=== PATIENT | male | born 1945 | race Caucasian/White ===

== ENCOUNTER 2017-06-12 12:44 | Emergency (ER) | payer OTHER ==
[~2017-06-12] VITALS: Ht 181.6 cm; Wt 101.0 kg
[~2017-06-12 12:44] MED LIST: HYDR25TA4 PO; LOSA1TAB PO; PRAV20TA PO; PRLSR20 PO
[2017-06-12 12:46] VITALS: Ht 181.6 cm; Wt 101.0 kg
[2017-06-12] MEDS ORDERED: HYDROCODONE/ACETAMIN 5/325MG TAB PO ONE (13:00)
[2017-06-12] MEDS ORDERED: CHOL20009 PO (13:28)
[2017-06-12] MEDS ORDERED: ROSU5TAB PO (13:28)
--- NOTE | 2017-06-12 13:34 | DIAGNOSTIC IMAGING REPORT ---
LEFT FOOT 3 VIEWS CLINICAL HISTORY: Fall with left foot injury. FINDINGS: 3 views of the left foot are obtained. No prior studies are available for comparison at the time of dictation. The skeletal structures are osteopenic. A nondistracted fracture is suggested involving the distal shaft of the first proximal phalanx. No additional fracture is identified. Mild to moderate arthritic change is present at the first metatarsophalangeal joint. Mild degenerative spurring is seen along the dorsal aspect of the tarsal bones. Soft tissue edema is present around the ankle. IMPRESSION: 1. Suspect a subtle nondistracted fracture of the distal shaft of the first distal phalanx. Correlate for point tenderness at this site. 2. No additional fracture is clearly identified. 3. Osteopenia and arthritic change as above. Electronically signed by: Roger Guerra M.D. 06/12/2017 1:33 PM Dictated Date/Time: 06/12/2017 1:31 PM
--- NOTE | 2017-06-12 13:36 | DIAGNOSTIC IMAGING REPORT ---
L ANKLE MIN 3 VIEWS ROUTINE CLINICAL HISTORY: Fall. Left foot/ankle injury trauma. Pain. COMPARISON: None. DISCUSSION: No acute bony abnormality. Old avulsion from the tip of the medial malleolus. Mild soft tissue swelling laterally. Ankle mortise is aligned anatomically. Subtalar joint is intact. IMPRESSION: 1. Mild lateral soft tissue edema. 2. No acute bony abnormality. 3. Small avulsion considered old from the medial malleolus. The above report was generated using voice recognition software. It may contain grammatical, syntax or spelling errors. Electronically signed by: Pilo Valladares M.D. 06/12/2017 1:34 PM Dictated Date/Time: 06/12/2017 1:33 PM
[2017-06-12] MEDS ORDERED: HYDR-5688 PO ×2 (14:48→14:51)
[2017-06-12 15:09] VITALS: BP 128/88; PULSE 68; TEMP 36.4; O2SAT 96
--- NOTE | 2017-06-12 18:49 | EMERGENCY ROOM VISIT NOTE ---
History First contact with patient: 12:51 Chief Complaint: ANKLE PAIN Stated Complaint: FELL DOWN STAIRS, LEFT FOOT PAIN History of Present Illness The patient is a 71 year old male who presents to the Emergency Room with complaints of pain and swelling into his left foot and ankle after falling down steps about 2 hours ago. The patient states that he was walking down stairs at home, and missed the last 1 or 2 steps, essentially rolling his ankle. 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 He does complain of some left foot pain when trying to walk. He was able to ambulate immediately following the episode and has not taken anything [id number] for his pain which he currently rates a 3/10. He did not suffer additional injuries such as head, neck, shoulder, arms, hips, or knee injuries. He is not on blood thinners. Review of Systems More than 10 systems were reviewed and otherwise negative with the exception of history of present illness. Past Medical/Surgical History No additionally pertinent chronic medical disease Family History No pertinent family history Social History Smoking Status: Former Smoker Drug Use: none Marital Status: Housing Status: lives with family Occupation Status: employed Current/Historical Medications Scheduled Cholecalciferol (Vitamin D), 2,000 UNITS PO DAILY Hydrochlorothiazide (Hctz), 25 MG PO QAM Pravastatin (Pravachol ), 20 MG PO QPM Rosuvastatin Calcium (Crestor), 5 MG PO DAILY Scheduled PRN Hydrocodone/Acetaminophen 5MG/325MG ([place] 5MG/325MG), 1-2 TABLET PO Q6 PRN for Pain Physical Exam Vital Signs Date Time Temp Pulse Resp B/P (MAP) Pulse Ox O2 Delivery O2 Flow Rate FiO2 06/12/17 15:09 36.4 68 18 128/88 96 06/12/17 12:46 36.4 75 17 111/83 96 Room Air Physical Exam VITALS: Vitals are noted on the nurse's note and reviewed by myself. Vital signs stable. GENERAL: Well-developed, well-nourished, white male, who is in no acute distress and resting comfortably. Patient is cooperative with the examination. HEAD: Normocephalic atraumatic. NECK: Supple without nuchal rigidity. No lymphadenopathy. No thyromegaly. Cervical spine is nontender. HEART: Regular rate and rhythm without murmurs gallops or rubs. LUNGS: Clear to auscultation bilaterally without wheezes, rales or rhonchi. No retractions or accessory muscle use. MUSCULOSKELETAL: Notable edema is appreciated over the lateral aspect of the left ankle. No significant medial edema noted. The lateral aspect is with some ecchymosis and tenderness. Pedal pulses are intact. The left foot is tender at the MTP with ecchymosis noted throughout the first digit. No gross deformity or lacerations. Medical Decision & Procedures ER Provider Diagnostic Interpretation: L ANKLE MIN 3 VIEWS ROUTINE CLINICAL HISTORY: Fall. Left foot/ankle injury trauma. Pain. COMPARISON: None. DISCUSSION: No acute bony abnormality. Old avulsion from the tip of the medial malleolus. Mild soft tissue swelling laterally. Ankle mortise is aligned anatomically. Subtalar joint is intact. IMPRESSION: 1. Mild lateral soft tissue edema. 2. No acute bony abnormality. 3. Small avulsion considered old from the medial malleolus. LEFT FOOT 3 VIEWS CLINICAL HISTORY: Fall with left foot injury. FINDINGS: 3 views of the left foot are obtained. No prior studies are available for comparison at the time of dictation. The skeletal structures are osteopenic. A nondistracted fracture is suggested involving the distal shaft of the first proximal phalanx. No additional fracture is identified. Mild to moderate arthritic change is present at the first metatarsophalangeal joint. Mild degenerative spurring is seen along the dorsal aspect of the tarsal bones. Soft tissue edema is present around the ankle. IMPRESSION: 1. Suspect a subtle nondistracted fracture of the distal shaft of the first distal phalanx. Correlate for point tenderness at this site. 2. No additional fracture is clearly identified. 3. Osteopenia and arthritic change as above Medications Administered Medications (Trade) Dose Ordered Sig/Amber Route Start Time Stop Time Status Last Admin Dose Admin Acetaminophen/ Hydrocodone Bitart ([place] 5/325 Tab) 1 tab NOW ONCE PO 06/12/17 13:00 06/12/17 13:01 DC 06/12/17 13:02 1 TAB ED Course Physical exam and history were performed. Nursing notes, EMR, and Medication List were personally reviewed. Patient appears to have fallen and suffered injury to his left ankle and left foot. The patient has neuropathy in this foot, and while he is having pain in the ankle his foot is without significant tenderness. He was given oral Vicodin here in the department. X-rays were performed and reviewed by myself and radiology. X-rays appear to show a left great toe fracture and old injury to the ankle. I discussed options of care with the patient. He will be placed in a postop shoe with elias tape. He will be given crutches as this is his preference and he does have a walker at home if needed. Will give him a short course of Vicodin and have him follow with orthopedics after the weekend for recheck. The patient was pleased with plan of care and voiced understanding. He was discharged home under the care of his who is acting as a concrete pile driver operator today. The chart was completed utilizing [employer] Speech Voice Recognition Software. Grammatical errors, random word insertions, pronoun errors, and incomplete sentences are an occasional consequence of this system due to software limitations, ambient noise, and hardware issues. Any formal questions or concerns about the content, text, or information contained within the body of this dictation should be directly addressed to the provider for clarification. . Medical Decision Differential diagnosis includes, but is not limited to: Sprain, strain, fracture , dislocation, subluxation, contusion, and others Impression Primary Impression: Fracture of left great toe Additional Impression: Sprain of left ankle Departure Information Dispostion Home / Self-Care Condition GOOD Prescriptions Hydrocodone/Acetaminophen 5MG/325MG ([place] 5MG/325MG) Tab 1-2 TABLET PO Q6 Y for Pain, #15 TAB For Initial Treatment Prov: Glenn Tanner PA-C 06/12/17 Referrals Michael Castellon M.D. Forms HOME CARE DOCUMENTATION FORM, Work Instructions, Additional Instructions: Patient was seen and evaluated today in the emergency department fo medical care. Return to work at the [employer] of orthopedics. Pleas excuse. IMPORTANT VISIT INFORMATION Patient Instructions My [facility] Additional Instructions You were seen and evaluated today on an emergency basis only. This is not a substitute for, or an effort to provide, complete comprehensive medical care. It is not possible to recognize and treat all injuries or illnesses in a single emergency department visit. For this reason it is recommended that you followup with [facility] orthopedics, Dr. Castellon's office, next week for ongoing care and evaluation. Use your postop shoe for comfort. Use your crutches to help with walking. For baseline pain relief you may alternate ibuprofen and acetaminophen every 4 hours for pain control. Take 600 mg ibuprofen (Advil) and then 4 hours later take 1000 mg acetaminophen (Tylenol). Do not take more than 3000 mg acetaminophen in a single day. [place] (hydrocodone/acetaminophen) 5/325 mg ONE or TWO every 6 hours as needed for worsening breakthrough pain. Do not drink or drive on [place]. This medication will likely make you tired. Do not take [place] and Tylenol at the same time as both contain acetaminophen. [place] may cause constipation. You may wish to take an [id number] stool softener like Colace if this occurs. You are welcome to return to the emergency department anytime with new, worsening, or concerning symptoms. Work Instructions Additional Work Instructions: Patient was seen and evaluated today in the emergency department for medical care. Return to work at the instruction of orthopedics. Please excuse. Problem Qualifiers
== END 2017-06-12 15:11 | disposition home or self-care (01) ==
LOC: C.EDB 12:45 → C.EDD 15:11
DX: S92.405A Nondisplaced unspecified fracture of left great toe, initial encounter for closed fracture (principal); S93.402A Sprain of unspecified ligament of left ankle, initial encounter; W10.9XXA Fall (on) (from) unspecified stairs and steps, initial encounter; Y92.018 Other place in single-family (private) house as the place of occurrence of the external cause; Z87.891 Personal history of nicotine dependence; Z79.899 Other long term (current) drug therapy

== ENCOUNTER 2017-08-29 11:07 | Emergency (ER) | payer OTHER ==
[~2017-08-29] VITALS: Ht 180.3 cm; Wt 101.2 kg
[~2017-08-29 11:07] MED LIST changes: +CHOL20009 PO; +HYDR-5688 PO; -LOSA1TAB PO; -PRLSR20 PO; +ROSU5TAB PO
[2017-08-29 11:12] VITALS: TEMP 36.7; Ht 180.3 cm; Wt 101.2 kg
--- NOTE | 2017-08-29 11:51 | DIAGNOSTIC IMAGING REPORT ---
LEFT ELBOW 3 VIEWS HISTORY: L elbow pain COMPARISON: None. FINDINGS: There is no fracture or dislocation. Soft tissues are unremarkable. No radiopaque foreign bodies. No elbow effusion. IMPRESSION: No fractures. Electronically signed by: Nitish Garay M.D. 08/29/2017 11:49 AM Dictated Date/Time: 08/29/2017 11:49 AM
[2017-08-29 12:18] VITALS: BP 127/86; PULSE 78; O2SAT 96
--- NOTE | 2017-08-29 13:18 | EMERGENCY ROOM VISIT NOTE ---
History First contact with patient: 11:25 Chief Complaint: ARM PAIN Stated Complaint: LEFT ARM POPPED History of Present Illness The patient is a 72 year old male who presents to the Emergency Room with his with complaints of a left elbow injury. The patient reports that his threw a bag of linens down steps in her home this morning. He attempted to catch it and felt a pop in his elbow. He now reports pain with any flexion or extension of the elbow. He denies any pain extending into the upper biceps or shoulder region. He denies any paresthesias or numbness of the left forearm, hand or fingers. The patient is right-hand dominant, and rates his discomfort a 10 out of 10 in triage. Review of Systems 10 system review was performed and was negative except for pertinent positives and negatives as indicated in history of present illness Past Medical/Surgical History Medical Problems: (1) Hyperlipidemia, Unspecified (2) Hypertension (3) Tobacco Use Disorder Surgical Problems: (1) History of bunion surgery Family History FH: diabetes mellitus FH: heart disease FH: hypertension Social History Smoking Status: Never Smoker Alcohol Use: none Drug Use: none Marital Status: Occupation Status: employed Current/Historical Medications Scheduled Cholecalciferol (Vitamin D), 2,000 UNITS PO DAILY Hydrochlorothiazide (Hctz), 25 MG PO HS Pravastatin (Pravachol ), 20 MG PO QPM Rosuvastatin Calcium (Crestor), 5 MG PO HS Physical Exam Vital Signs Date Time Temp Pulse Resp B/P (MAP) Pulse Ox O2 Delivery O2 Flow Rate FiO2 08/29/17 12:18 78 18 127/86 96 08/29/17 11:12 36.7 73 20 113/72 95 Room Air Physical Exam CONSTITUTIONAL: Healthy and well nourished. Alert and oriented X 3 with positive affect. Patient does not appear in any acute distress on exam. HEENT: Normocephalic, atraumatic. Pupils equal, round and reactive. NECK: Full active range of motion without discomfort. MUSCULOSKELETAL: Examination of the left elbow shows tenderness to palpation over the medial flexor crease. With resisted flexion at the elbow, skin retractions are noted, which is suggestive of no significant short head biceps tendon rupture. The patient has no tenderness to palpation through the biceps musculature or bicipital groove. No tenderness to palpation over the medial or lateral collateral ligaments. No worsening pain with pronation or supination. Distal pulses are intact. INTEGUMENTARY: No rash or other significant dermatologic conditions noted. NEUROLOGIC: Left hand and fingers are sensory intact. Medical Decision & Procedures ER Provider Diagnostic Interpretation: My interpretation of left elbow x-rays does not show any obvious fractures, avulsions, dislocation or obvious joint effusion. Radiologist report is as follows: LEFT ELBOW 3 VIEWS HISTORY: L elbow pain COMPARISON: None. FINDINGS: There is no fracture or dislocation. Soft tissues are unremarkable. No radiopaque foreign bodies. No elbow effusion. IMPRESSION: No fractures. ED Course Patient history and physical exam were performed. Nurse's notes were reviewed. Vital signs were reviewed and were normal. The patient refused any analgesics while in the emergency department. X-rays of the left elbow were normal. An arm sling was applied, and the patient was encouraged to follow-up with orthopedics for further reevaluation and management. The patient was instructed to refrain from use of the arm until he is reevaluated by orthopedics. He was encouraged to intermittently apply ice for swelling. Ibuprofen or Tylenol as needed for pain. The patient was happy with plan of care, voiced understanding of all discharge instructions, and rated his discomfort a 3 out of 10 at the conclusion of my exam. The patient was also seen and examined by Dr. Nunez, ED attending physician, who agrees with workup and plan of care. Medical Decision Medication Reconcilliation Current Medication List: was personally reviewed by me Blood Pressure Screening Patient's blood pressure: Normal blood pressure Impression Primary Impression: Other injury of muscle, fascia and tendon of other parts of biceps, left arm, initial encounter Departure Information Referrals Castro Sarmiento M.D.([facility]) (PCP) Patient Instructions My [facility]
--- NOTE | 2017-08-29 15:45 | EMERGENCY ROOM VISIT NOTE ---
ED Visit Note First contact with patient: 11:25 I have personally seen and evaluated the patient with the physician fast food assistant restaurant manager. I agree with the diagnostic/management decisions and have personally been involved in these decisions and agree with the diagnosis.
== END 2017-08-29 12:21 | disposition home or self-care (01) ==
LOC: C.EDB 11:08 → C.EDD 12:21
DX: S46.202A Unspecified injury of muscle, fascia and tendon of other parts of biceps, left arm, initial encounter (principal); X50.1XXA Overexertion from prolonged static or awkward postures, initial encounter; Y92.019 Unspecified place in single-family (private) house as the place of occurrence of the external cause; E78.5 Hyperlipidemia, unspecified; I10 Essential (primary) hypertension; Z79.899 Other long term (current) drug therapy